=== PATIENT | female | born 1975 | race Caucasian/White ===

== ENCOUNTER 2020-08-20 06:58 | Outpatient (NON) | payer OTHER, SELFPAY ==
[2020-08-20 23:36] LABS: SARS-CoV-2 RNA PCR Positive
== END 2020-08-20 06:59 ==
PROVIDERS: Visit Provider Family Medicine
DX: U07.1 COVID-19 (principal)
CPT/HCPCS: 87635; C9803; U0003

== ENCOUNTER 2022-01-16 15:11 | Outpatient (CLI) | payer OTHER, SELFPAY ==
--- NOTE | ~2022-01-16 | MR_ITS ---
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 Sequences included coronal PD-weighted FSE, coronal PD-weighted FS FSE, sagittal T2-weighted FSE , sagittal PD-weighted FS FSE and axial PD weighted fat saturated FSE. COMPARISON: None. FINDINGS: Medial compartment: Full-thickness radial tear near the posterior root of the medial meniscus with mild medial extrusion of the meniscal body. Partial-thickness chondral ulceration at the central weightbearing medial femor al condyle. Articular cartilage along the medial tibial plateau appears normal however there is mild subarticular edema-like signal change along the medial rim which could be reactive related to altered stress distribution resulting from the meniscal tear. Lateral compartment: Lateral meniscus is normal. Articular cartilage is normal. Patellofemoral compartment: Partial-thickness cartilage loss along the lateral patellar facet and apical ridge with scattered alexis p chondral fissuring. Small region of deep chondral fissuring at the inferior most aspect of the medi al trochlea. Additional deep chondral fissuring at the trochlear groove and medial side of the latera l trochlea. Ligaments and tendons: Anterior and posterior cruciate ligaments are normal. The medial collateral ligament and fibular lea ateral ligament complex are normal. The extensor mechanism is normal. The visualized medial and later al hamstring tendons as well as the iliotibial band are normal. Fluid: Small left knee joint effusion at the suprapatellar pouch. No loose osteochondral bodies identified. Small amount of fluid tracking between the medial head of the gastrocnemius and the semimembranosus t endon is typical site of a Cobb's cyst but which does not appear loculated which tracks more caudall y along the medial margin of the medial head of the gastrocnemius muscle suggesting a ruptured Cobb' s cyst. Osseous/other: Small low signal intensity bone island at the lateral trochlea. Patchy red marrow reexpansion in the distal femoral metaphysis and distal diaphysis. No fracture or pathologic marrow replacing process. IMPRESSION: 1. Full-thickness radial tear The posterior root of the medial meniscus. 2. Mild medial and patellofemoral osteoarthritis with moderate grade chondromalacia along the weightb earing medial femoral condyle and moderate to high-grade chondromalacia at the patella and trochlea. Reviewed, dictated and finalized at location A. IMPRESSION: 1. Full-thickness radial tear The posterior root of the medial meniscus. 2. Mild medial and patellofemoral osteoarthritis with moderate grade chondromal acia along the weightbearing medial femoral condyle and moderate to high-grade chondromalacia at the patella and trochlea.
== END 2022-01-16 15:12 | disposition home or self-care (01) ==
LOC: ANHIMG 15:18
PROVIDERS: PCP Family Medicine
DX: M94.262 Chondromalacia, left knee (principal); S83.242A Other tear of medial meniscus, current injury, left knee, initial encounter; M17.12 Unilateral primary osteoarthritis, left knee
CPT/HCPCS: 73721

== ENCOUNTER 2024-11-23 16:14 | Outpatient (CLI) | payer OTHER, SELFPAY ==
--- OUTSIDE RECORDS SUMMARY | 2024-11-23 16:20 | XMS_ITS | Clinical Summary ---
Author Organization [facility] Address [address] [place] [address]. 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 Gender Identity Not on file Sexual Orientation Not on file Plan of Treatment Health Maintenance Due Date Last Done Comments Cervical Cancer Screening Pa p Smear (Age 30 to 64) Every 3 Years 1975 Colorectal Cancer Screening Colonoscopy (10 Years) 1975 Annual Physical 1978 Hepatitis C 1993 DTaP, Tdap and Td Vaccines ( 1 - Tdap) 1994 Hepatitis B Vaccines (1 of 3 - 19+ 3-dose series) 1994 Cervical Cancer Screening Pa p with HPV Testing (Age 30 to 64) Every 5 Years 2005 Cervical Cancer Screening with HPV 2005 Mammogram Screening 2015 COVID-19 Vaccine (2023-2 5 season) 2024 Influenza Adult (#1) 2024 Meningococcal B Vaccine Aged Out No l onger eligible based on patient's age to complete this topic Meningococcal Vaccine Aged Out No cherise garrick eligible based on patient's age to complete this topic Pneumococcal Vaccine: Pediat rics (0 to 5 Years) and At-Risk Patients (6 to 64 Years) Aged Out No longer eligible b ased on patient's age to complete this topic RSV Immunizations Under 20 Months Aged Out No longer eligible based on patient's age to complete this topic Insurance [facility] Care Teams Air Conditioning Manager Relationship Specialty Start Date End Date Juan Cifuentes MD [address] [place] [address] [address] [place] [address] PCP - General FAMILY PRACTICE 09/24/21
--- OUTSIDE RECORDS SUMMARY | 2024-11-23 16:20 | XMS_ITS | Encounter Summary ---
Author Organization [facility] Address [address] [place] [address] Phone Care Team Providers Care Quality Assurance Supervisor Body Name Role Phone Nia Edwards MD Primary Care Provider + Juan Cifuentes MD Primary Care Provider [phone] Encounter Details Date Type Department Care Team (Latest Contact Info) Description 12/16/2017 Orders Only [facility] CONVERSION Scanning, Provider Social History Tobacco Use Types Packs/Day Years Used Date Smoking Tobacco: Never Smokeless Tobacco: Never Comments No Sex and Gender Information Value Date Recorded Sex Assigned at Not on file 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 Gender Identity Not on file Sexual Orientation Not on file documented as of this encounter Plan of Treatment Not on file documented as of this encounter Procedures Procedure Name Priority Date/Time Associated Diagnosis Comments OBSTETRIC/GYNECOLOGY ULTRASONOGRAPHY REPORT 12/16/2017 4:14 PM MEDICAL TRANSCRIPTION SUPERVISOR documented in this encounter Results * OBSTETRIC/GYNECOLOGY ULTRASONOGRAPHY REPORT (12/16/2017 4:14 PM MEDICAL TRANSCRIPTION SUPERVISOR) Anatomical Region Laterality Modality Ultrasound us Provider Scanning IMG OB US PROCEDURES Final Res ult documented in this encounter Visit Diagnoses Not on filedocumented in this encounter Additional Health Concerns Infection Onset Date Last Indicated Resolved Time COVID: Recovered Comment:02/19/2022 Patient COVID + 3/4, meets recovery status, IP Karin Gonzalez, RN 12/24/2021 02/19/202204/23 3:05 AM CDT documented as of this encounter Care Teams Quality Assurance Supervisor Body Relationship Specialty Start Date End Date Nia Edwards MD PCP - General 12/03/17 10/27/21 Juan Cifuentes MD [address] [address] PCP - General Family Medicine 10/28/21 documented as of this encounter
--- OUTSIDE RECORDS SUMMARY | 2024-11-23 16:20 | XMS_ITS | Encounter Summary ---
Author Organization [facility] Address [address] [place] [address] Phone Care Team Providers Care Gifts Officer Name Role Phone Clinic, Pcp Primary Care Provider Nia Griffin MD Primary Care Provider + Juan Cifuentes MD Primary Care Provider [phone] Encounter Details Date Type Department Care Team (Late st Contact Info) Description 04/22/2017 Orders Only [facility] [address] [facility] [address] [address] Karissa Strickland MD [address] 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 Gender Identity Not on file Sexual Orientation Not on file documented as of this encounter Plan of Treatment Not on file documented as of this encounter Procedures Procedure Name Priority Date/Time Associated Diagnosis Comments SCREENING MAMMOGRAM 2D BILATERAL Schedule Routine, Read Routine (OP Routine) 04/13/2017 documented in this encounter Results * SCREENING MAMMOGRAM 2D BILATERAL (04/13/2017) Anatomical Region Laterality Modality Breast Bilateral Mammography us Karissa Strickland MD IMG MAMMO PROCEDURES Final Result documented in this encounter Visit Diagnoses Not on filedocumented in this encounter Additional Health Concerns Infection Onset Date Last Indicated Resolved Time COVID: Recovered Comment:02/19/2022 Patient COVID + 3/, meets recovery status, IP Karin Gonzalez, RN 12/24/2021 02/19/202204/23 3:05 AM CDT documented as of this encounter Care Teams Gifts Officer Relationship Specialty Start Date End Date Clinic, Pcp PCP - General 09/20/17 12/02/17 Nia Edwards MD PCP - General 12/03/17 10/27/21 Juan Cifuentes MD [address] [address] PCP - General Family Medicine 10/28/21 documented as of this encounter
--- OUTSIDE RECORDS SUMMARY | 2024-11-23 16:20 | XMS_ITS | Clinical Summary ---
Author Organization [facility] Address [address] [place] [address] Phone Care Team Providers Care Psychological Tests Sales Agent Name Role Phone Nia Edwards MD Primary Care Provider + Allergies No known active allergies Medications ferrous sulfate 325 (65 Fe) MG Tablet Take 325 mg by mouth daily. Active Cholecalciferol (VITAMIN D3) 1000 UNIT Tablet Take 1,000 Units by mouth daily. Active Family History Medical History Relation Name Comments No Known Problems Father No Known Problems Mother Relation Name Status Comments Father Alive Mother Alive Social History Tobacco Use Types Packs/Day Years Used Date Smoking Tobacco: Never Smokeless Tobacco: Never Tobacco Cessation:Counseling Given: No Alcohol Use Standard Drinks/Week Comments No 0 (1 standard drink = 0.6 oz pur e alcohol) Sexually Active Control Partners Comments Yes Male Comments No Sex and Gender Information Value Date Recorded Sex Assigned at Not on file Legal Sex Female 8:29 AM CDT Gender Identity Not on file Sexual Orientation Not on file Last Filed Vital Signs Vital Sign Reading Time Taken Comments Blood Pressure 110/80 12/07/2017 3:02 PM DIPLOMA MEDICAL ASSISTANT Pulse 67 12/07/2017 3:02 PM DIPLOMA MEDICAL ASSISTANT Temperature - - Respiratory Rate 18 12/07/2017 3:02 PM DIPLOMA MEDICAL ASSISTANT Oxygen Saturation 98% 12/07/2017 3:02 PM DIPLOMA MEDICAL ASSISTANT Inhaled Oxygen Concentration - - Weight 74.8 kg (165 lb) 12/07/2017 3:02 PM DIPLOMA MEDICAL ASSISTANT Height 170.2 cm (5' 7 ) 12/07/2017 3:02 PM DIPLOMA MEDICAL ASSISTANT Body Mass Index 25.84 12/07/2017 3:02 PM DIPLOMA MEDICAL ASSISTANT Plan of Treatment Health Maintenance Due Date Last Done Comments Hepatitis C Virus (HCV) Screening 1975 TdaP Immunization 1975 Hepatitis B Immunization (1 of 3 - 19+ 3-dose series) 1994 Pap Smear 1996 Cervical Cancer Screening (CCS) 2005 HPV/Cotest 2005 Discussion re Starting/Frequ ency of Mammograms 2015 Colonoscopy 2020 Colorectal Cancer Screening 2020 Influenza Immunization (#1) 2024 SARS-COV-2 Immunization ( season) 2024 Respiratory Syncytial Virus (RSV) Immunization (Adult) (1 - 1-dose 75+ series) 2050 Meningococcal Immunization (ACWY) Aged Out No longer eligible based on patient's age to complete this topic Pneumococcal Immunization Combined Aged Out No longer eligible based on patient's age to complete this topic Rotavirus Immunization Aged Out No lo nger eligible based on patient's age to complete this topic Care Teams Psychological Tests Sales Agent Relationship Specialty Start Date End Date Nia Edwards MD [address] [place] [address] PCP - General Family Medicine 09/01/17
--- OUTSIDE RECORDS SUMMARY | 2024-11-23 16:20 | XMS_ITS | Clinical Summary ---
Author Organization [facility] Address [address] [place] [address] Phone Care Team Providers Care R Developer Name Role Phone Juan Cifuentes MD Primary Care Provider [phone] Allergies No known active allergies Medications levonorgestreL (MIRENA) IUDIndications:Pr egnancy Contraception 1 each by intrauterine route continuously 01/10/20 20 025 Active multivitamin tabletIndications :Vitamin Deficiency Prevention Take 1 tablet by mouth it compliance manager before breakfast Active cholecalciferol (VITAMIN D-3) 400 unit capsuleIndication s:supplement Take 1 tablet/capsule (400 Units total) by mouth it compliance manager before breakfast Active iron 18 mg tabletIndications :Iron Deficiency Anemia,supplement Take 18 mg by mouth it compliance manager before breakfast Active ascorbic acid (VITAMIN C) 100 mg tabletIndications :supplement Take 1 tablet (100 mg total) by mouth every morning Active vitamin B complex capsuleIndication s:Vitamin Deficiency Prevention Take 1 capsule by mouth every morning Active azelastine (ASTELIN) 137 mcg (0.1 %) nasal sprayIndications: Seasonal Allergic Rhinitis Administer 1 spray into each nostril every morning 03/05/20 24 Active ondansetron (ZOFRAN) 4 mg tablet Take 1 tablet (4 mg total) by mouth every 8 (eight) hours as needed for nausea 12 tablet 10/13/20 24 Active docusate sodium (COLACE) 100 mg capsuleIndication s:constipation Take 1 capsule (100 mg total) by mouth 2 (two) times a day 14 capsule 10/13/20 24 Active aspirin 81 mg enteric coated tablet Take 1 tablet (81 mg total) by mouth 2 (two) times a day for 14 days 28 tablet 10/13/20 24 Active oxyCODONE-acetami nophen (PERCOCET) 7.5-325 mg per tabletIndications :Pain Take 1 tablet by mouth every 6 (six) hours as needed for pain 24 tablet 10/13/20 24 Active Hospital, Clinic, or Other Facility Administered Medication Ordered Dose Route Frequency Start Date End Date Status levonorgestreL (MIRENA) 20 mcg/24 hours (5 yrs) 52 mg IUD 1 eachIndications:Encoun ter for IUD removal and reinsertion 1 each intrauterine 01/10/2020 Active Active Problems Problem Noted Date Diagnosed Date Biceps tendinitis of right upper extremity 09/08 Tendinitis of right rotator cuff 09/08/2024 Status post medial meniscal repair 03/10/2022 Chronic vulvitis 02/10/2022 Assessment & Plan (02/10/2022 9:02 PM CDT): Diflucan 150 po times one SureSwab sent Vulvar skin care guidelines Stop using Feminine wash. Try Baking Soda soak. OK to use otc hydrocortisone ointment externally BID for 3 days. Acute medial meniscus tear of left knee 01/22/20 Chondromalacia of knee, left 09/30/2021 Uterine leiomyoma 12/27/2014 Encounters Date Type Department Care Team Description 11/01/2024 4:00 PM COTTON PICKING MACHINE OPERATOR Office Visit [facility] Orthopaedic Surgery [address] [facility] 2nd Floor [address] [place] [address] Ole Jacobs MD Right shoulder pain, unspecified chronicity (Primary Dx) 10/13/2024 1:33 PM COTTON PICKING MACHINE OPERATOR Anesthesia Event [facility] Surgery at [facility] [address] [place] [address] Maurice Richards MD Nieva, Daniel Rey Camba, MD 10/13/2024 12:50 PM COTTON PICKING MACHINE OPERATOR - 10/13/2024 3:35 PM COTTON PICKING MACHINE OPERATOR Surgery [facility] Surgery at [facility] [address] [place] [address] Ole Jacobs MD ARTHROSCOPY SHOULDER SUBACROMIAL DECOMPRESSION 10/13/2024 10:33 AM COTTON PICKING MACHINE OPERATOR - 10/13/2024 4:38 PM COTTON PICKING MACHINE OPERATOR Hospital Encounter [facility] Surgery at [address] [address] Ole Jacobs MD Tendinitis of right rotator cuff [M75.81] (Primary Dx) Discharge Disposition: Discharge to home or self care 10/12/2024 Telephone [facility] Orthopaedic Surgery [id number] [place] [address] [address] [place] [address] Andre Epperson ATC 10/10/2024 Orders Only [facility] Orthopaedic Surgery [id number] [place] [address] [address] [place] [address] Ole Jacobs MD from Last 3 Months Surgical History Surgery Date Site/Laterality Comments MYOMECTOMY 10/25/2005 - 10/24/2006 Myomectomy ANTERIOR CRUCIATE LIGAMENT REPAIR 10/25/2005 - 10/24/2006 Right ACL/ patella OR LEG SURGERY 10/25/1981 - 10/24/1982 Left Laceration/wound closure KNEE ARTHROSCOPY W/ MENISCAL REPAIR 02/27/2022 Left Medical History Medical History Date Comments Uterine leiomyoma Fibroid uterus Anemia Anemia Personal history of COVID-19 +CO VID 12/24/2021-- Sx included fever & body aches X 2 days Social History Tobacco Use Types Packs/Day Years Used Date Smoking Tobacco: Never Smokeless Tobacco: Never AUDIT-C Answer Date Recorded Q1: How often do you have a drink containing alcohol? Never 10/13/2024 Q2: How many drinks containi ng alcohol do you have on a typical day when you are drinking? Patient does not drink Q3: How often do you have si x or more drinks on one occasion? Never 10/13/2024 PHQ-2 Answer Date Recorded PHQ-2 Total Score (If total score is 3 or more points, staff should administer the PHQ-9) 0 12/13/2020 Personal Safety Answer Date Recorded Have you ever been in or are you currently in a harmful physical or emotional relationship or is someone making you feel afraid or unsafe? Denies 10/13/2024 Comments No Sex and Gender Information Value Date Recorded Sex Assigned at Not on file Legal Sex Female 2:07 AM COTTON PICKING MACHINE OPERATOR Gender Identity Not on file Sexual Orientation Not on file Obstetrics History Para Term AB IAB SAB Ectopic Multiple Livin g Live Births 1 1 1 1 Date Outcome GA Total Labor Labor/2nd/3rd Weight Sex Type Anes PTL Maria Alejandra A1 A5 Name Clin Para Last Filed Vital Signs Vital Sign Reading Time Taken Comments Blood Pressure 115/68 10/13/2024 4:05 PM COTTON PICKING MACHINE OPERATOR Pulse 57 10/13/2024 4:05 PM COTTON PICKING MACHINE OPERATOR Temperature 36.2 ??C (97.2 ??F) 10/13/2024 3:50 PM CS T Respiratory Rate 17 10/13/2024 4:05 PM COTTON PICKING MACHINE OPERATOR Oxygen Saturation 99% 10/13/2024 4:05 PM COTTON PICKING MACHINE OPERATOR Inhaled Oxygen Concentration - - Weight 72.6 kg (160 lb) 10/13/2024 11:15 AM COTTON PICKING MACHINE OPERATOR Height 170.2 cm (5' 7 ) 10/13/2024 11:15 AM COTTON PICKING MACHINE OPERATOR Body Mass Index 25.06 10/13/2024 11:15 AM COTTON PICKING MACHINE OPERATOR Plan of Treatment Health Maintenance Due Date Last Done Comments Colon Cancer Screening-Colonoscopy 1975 Hepatitis C Screening 1975 DTaP/Tdap/Td Vaccine (1 - Tdap) 1986 Hepatitis B Screening 1993 Depression Screening 12/13/2021 12/13/2020 Breast Cancer Screening-Mammogram 04/24/2022 04/24/2021, 04/23/2020, 04/14/2018, Additional history exists Influenza Vaccine (#1) 2024 Cervical Cancer Screening 03/30/20252023, 03/30/2024, 03/29/2023, Additional history exists Regular Well Visit/Exam 18-64 03/30/2025 03/30/2024, 03/29/2023, 01/15/2022, Additional history exists Pneumococcal vaccine <65 Aged Out No longer eligible based on patient's age to complete this topic Medical Devices Implanted Type Area Plastic Parts Designer Device Identifier Shelf Expiration Date Model / Serial / Lot [employer] Footprint Ultra 4.5mm [place] Suture Peek-Latimer [id number] - S0 - [id number] Implanted:Qty: 1 on 02/27/2022 by Ole Jacobs MD at [facility] Left: Knee [employer] 08/23/2026 [id number] / [id number] / [id number] Procedures Procedure Name Priority Date/Time Associated Diagnosis Comments DC AN PROCEDURE PLACEHOLDER Routine 10/13/2024 1:54 PM COTTON PICKING MACHINE OPERATOR DC AN ELECTIVE ENDOTRACHEAL AIRWAY Routine 10/13/2024 1:54 PM COTTON PICKING MACHINE OPERATOR ARTHROSCOPY SHOULDER 10/13/2024 1:35 PM COTTON PICKING MACHINE OPERATOR Biceps tendinitis of right upper extremity Tendinitis of right rotator cuff Case Notes 10/06@0843: make second case in OR [address] Jacobs via email. Equipment list added to case comments. BR EXCISION DISTAL CLAVICLE 10/13/2024 1:35 PM COTTON PICKING MACHINE OPERATOR Biceps tendinitis of right upper extremity Tendinitis of right rotator cuff Case Notes 10/06@0843: make second case in OR [address] Jacobs via email. Equipment list added to case comments. BR ARTHROSCOPY SHOULDER SUBACROMIAL DECOMPRESSION 10/13/2024 1:35 PM COTTON PICKING MACHINE OPERATOR Biceps tendinitis of right upper extremity Tendinitis of right rotator cuff Case Notes 10/06@0843: make second case in OR [address] Jacobs via email. Equipment list added to case comments. BR DC AN PROCEDURE PLACEHOLDER Routine 10/13/2024 12:53 PM COTTON PICKING MACHINE OPERATOR DC AN PROCEDURE PLACEHOLDER Routine 10/13/2024 12:52 PM COTTON PICKING MACHINE OPERATOR BW IP ANE LDA PERIPHERAL NERVE CATHETER Routine 10/13/2024 12:52 PM COTTON PICKING MACHINE OPERATOR POCT HCG, URINE Routine 10/13/2024 11:14 AM COTTON PICKING MACHINE OPERATOR HIGH RISK HPV DNA DETECTION WITH GENOTYPING Routine 03/30/2024 5:28 PM CDT Screening for malignant neoplasm of the cervix SCREENING MAMMOGRAM 2D BILATERAL Schedule Routine, Read Routine (OP Routine) 04/24/2021 from Last 3 Months or Most Recently Relevant to Health Maintenance Results * DC AN ELECTIVE ENDOTRACHEAL AIRWAY, DC AN PROCEDURE PLACEHOLDER (10/13/2024 1:54 PM COTTON PICKING MACHINE OPERATOR) Narrative Nguyen Schneider CRNA - 10/13/2024 1:54 PM COTTON PICKING MACHINE OPERATOR Nguyen Schneider CRNA ? 10/13/2024 ??1:54 PM Airway Patient location: OR Urgency: elective Indications for airway management: anesthesia Difficult airway: no Staff: Placed by: SALESPERSON MEATS: Nguyen Schneider CRNA Emergent airway documentation: Risks and benefits discussed: yes Consent obtained: yes Consent given by: patient Airway prep: Preoxygenated: yes Patient position: sniffing Mask difficulty assessment: 0 - not attempted Spontaneous ventilation during airway: absent Sedation level during airway: GA Final airway details: Final airway type: endotracheal airway Tube type: ETT ETT size: 6.5 mm Cuffed: yes Technique used for successful ETT placement: direct laryngoscopy Devices/Methods used in placement: intubating stylet Insertion site: oral Blade type: Laura Blade size: 3 Cormack-Lehane (direct): grade IIa - partial view of glottis Cuff inflated with: air ETT to lips: 21 cm Placement verified by: auscultation and CO2 detection Airway secured with: silk tape Number of attempts: 1 us Maurice iRchards MD ANESTHESIA ORDERABLES Final Resu lt * DC AN PROCEDURE PLACEHOLDER (10/13/2024 12:53 PM COTTON PICKING MACHINE OPERATOR) Narrative Maurice Richards MD - 10/13/2024 12:53 PM COTTON PICKING MACHINE OPERATOR Maurice Richards MD ? 10/13/2024 12:53 PM Peripheral Block Patient location during procedure: pre-op holding Reason for block: post-op pain management per surgeon request Block type: single shot Laterality: right Block type: intercostobrachial nerve block Staff: Supervising provider: Maurice Richards MD Placed by: Anesthesiologist: Maurice Richards MD Procedure prep: Preprocedure checklist: patient identified, procedure contraindications assessed, site marked, procedure consent, surgical consent, IV checked, risks, benefits and alternatives discussed, monitors and equipment checked and timeout performed Patient position: supine and head of bed elevated Procedure performed while patient: sedate with meaningful contact Monitoring: oximetry, ECG and blood pressure Supplemental O2: nasal cannula Prep solution: chlorhexidine/alcohol PPE: provider hat/mask and sterile gloves Peripheral nerve block: Technique: landmark(s) Needle type: insulated, short-bevel and echogenic Needle gauge: 22 G Needle length: 50 mm Injection assessment: injection made incrementally with constant monitoring, negative aspiration for heme, no paresthesias noted, normal resistance to injection and see flowsheet for medication details Assessment: Block success: full evaluation pending Events: patient tolerated procedure well with no complications us Maurice Richards MD ANESTHESIA ORDERABLES Final Resu lt * BW IP ANE LDA PERIPHERAL NERVE CATHETER, DC AN PROCEDURE PLACEHOLDER (10/13/2024 12:52 PM COTTON PICKING MACHINE OPERATOR) Narrative Maurice Richards MD - 10/13/2024 12:52 PM COTTON PICKING MACHINE OPERATOR Maurice Richards MD ? 10/13/2024 12:53 PM Peripheral Block Patient location during procedure: pre-op holding Reason for block: post-op pain management per surgeon request Ultrasound image in chart or stored: yes Block type: catheter continuous infusion Laterality: right Block type: brachial plexus - interscalene Staff: Supervising provider: Maurice Richards MD Placed by: Anesthesiologist: Maurice Richards MD Procedure prep: Preprocedure checklist: patient identified, procedure contraindications assessed, site marked, procedure consent, surgical consent, IV checked, risks, benefits and alternatives discussed, monitors and equipment checked and timeout performed Patient position: head of bed elevated Procedure performed while patient: sedate with meaningful contact Monitoring: ECG, oximetry and blood pressure Supplemental O2: nasal cannula Prep solution: chlorhexidine/alcohol PPE: provider hat/mask, sterile gloves, sterile drape and sterile probe cover and gel Skin infiltrated with lidocaine 1%: yes Peripheral nerve block: Technique: ultrasound guided Needle type: insulated, short-bevel and echogenic Needle gauge: 21 G Needle length: 68mm. Injection assessment: injection made incrementally with constant monitoring, local visualized surrounding nerve on ultrasound, negative aspiration for heme, no paresthesias noted, normal resistance to injection and see flowsheet for medication details Catheter: Catheter type: catheter over needle Catheter over needle length: 51 Catheter placement details: catheter position confirmed by ultrasound, no aspiration of heme, benzoin, steri-strips, dermal adhesive and occlusive dressing applied Assessment: Block success: full evaluation pending Events: patient tolerated procedure well with no complications Maurice Richards MD ANESTHESIA ORDERABLES Final Resu lt * POCT hCG, urine (10/13/2024 11:14 AM COTTON PICKING MACHINE OPERATOR) HCG, ur, POC Negative Negative Lot Number [id number] QC Backgroud Clear Acceptable QC Control Line Acceptable Urine 10/13/2024 11:1 4 AM COTTON PICKING MACHINE OPERATOR Leonor Nelson NP POINT OF CARE TEST ORDERA BLES Final Result * High Risk HPV DNA Detection with Genotyping (Molecular component) (03/30/2024 5:28 PM CDT) Pathologist [facility] HPV HR 16 Not Detected Not Detected HPV HR 18 Not Detected Not Detected [facility] HPV HR Non 16/18 Not Detected Not Detected [facility] Comment: Interpretive Data Nucleic acid amplification for detection of high-risk Human Papilloma virus (HPV) is performed by the Murtaza Tamara 4800 HPV test, which specifically detects high-risk HPV-16, 18, 31, 33, 35, 39, 45, 51, 52, 56, 58, 59, 66, and 68 genotypes. ??This assay has been approved by the [place] Food and Drug Administration for detection of HPV in cervical specimens collected by a physician using an endocervical brush/spatula or cervical broom and placed in the ThinPrep Pap Test PreservCyt collection containers. ??The performance characteristics of this test have been verified by the [facility]. Correlate with separately reported cytology results, as applicable. Interpretive data last revised 23 Endocervical 03/30/2024 5:28 PM CDT 03/30/2024 8:37 PM CDT Narrative [facility] - 04/03/2024 8:15 PM CDT Clinical history and diagnosis->routine Number of vials->1 Testing type->Screening Last menstrual period (date if known)->iud Contraceptive use->IUD Karissa Strickland MD LAB BODY FLUIDS AND STOOLS ORDERABLES Final Result [facility] [address] Department [place] [address] * Screening Mammogram 2D Bilateral (04/24/2021) Anatomical Region Laterality Modality Breast Bilateral Mammography Karissa Strickland MD IMG MAMMO PROCEDURES Final Result from Last 3 Months or Most Recently Relevant to Health Maintenance Insurance [facility] CHOICE PLUS [facility] CHOICE PLUS [place] [id number] [facility] CHOICE PLUS [place] [id number] [facility] CHOICE PLUS [place] [id number] Care Teams R Developer Relationship Specialty Start Date End Date Juan Cifuentes MD [address] [address] PCP - General Family Medicine 10/28/21
--- OUTSIDE RECORDS SUMMARY | 2024-11-23 16:20 | XMS_ITS | Referral Summary ---
Author Organization [facility] Address [address] [place] [address] Phone Care Team Providers Care Soil Specialist Name Role Phone Juan Cifuentes MD Primary Care Provider [phone] Encounters Date Type Department Care Team Description 11/01/2024 4:00 PM PLASTER MIXER Office Visit [facility] Orth[facility] Surgery [address] [facility] 2nd [address] [place] [address] Ole Jacobs MD Right shoulder pain, unspecified chronicity (Primary Dx) 10/13/2024 12:50 PM PLASTER MIXER - 10/13/2024 3:35 PM PLASTER MIXER Surgery [facility] [address] [place] [address] Ole Jacobs MD ARTHROSCOPY SHOULDER SUBACROMIAL DECOMPRESSION 10/13/2024 1:33 PM PLASTER MIXER Anesthesia Event [facility] [address] [place] [address] Maurice Richards MD Nieva, Daniel Rey Camba, MD 10/13/2024 10:33 AM PLASTER MIXER - 10/13/2024 4:38 PM PLASTER MIXER Hospital Encounter [facility] [address] [place] [address] Ole Jacobs MD Tendinitis of right rotator cuff [M75.81] (Primary Dx) Discharge Disposition: Discharge to home or self care 10/12/2024 Telephone [facility] Surgery [address] [facility] 2[address] [place] [id number] Andre Epperson ATC 10/10/2024 Orders Only [facility] [address] [facility] 2[address] [place] [address] Ole Jacobs MD from Last 3 Months Allergies No known active allergies Medications levonorgestreL (MIRENA) IUDIndications:Pr egnancy Contraception 1 each by intrauterine route continuously 01/10/20 20 025 Active multivitamin tabletIndications :Vitamin Deficiency Prevention Take 1 tablet by mouth production weigher before breakfast Active cholecalciferol (VITAMIN D-3) 400 unit capsuleIndication s:supplement Take 1 tablet/capsule (400 Units total) by mouth production weigher before breakfast Active iron 18 mg tabletIndications :Iron Deficiency Anemia,supplement Take 18 mg by mouth production weigher before breakfast Active ascorbic acid (VITAMIN C) [...] medial meniscus tear of left knee 01/22/20 22 Chondromalacia of knee, left 09/30/2021 Uterine leiomyoma 12/27/2014 Social History Tobacco Use Types Packs/Day Years [...] on file Legal Sex Female 2:07 AM PLASTER MIXER Gender Identity Not on file Sexual Orientation Not on file Last Filed Vital Signs Vital Sign Reading Time Taken Comments Blood Pressure 115/68 10/13/2024 4:05 PM PLASTER MIXER Pulse 57 10/13/2024 4:05 PM PLASTER MIXER Temperature 36.2 ??C (97.2 ??F) 10/13/2024 3:50 PM CS T Respiratory Rate 17 10/13/2024 4:05 PM PLASTER MIXER Oxygen Saturation 99% 10/13/2024 4:05 PM PLASTER MIXER Inhaled Oxygen Concentration - - Weight 72.6 kg (160 lb) 10/13/2024 11:15 AM PLASTER MIXER Height 170.2 cm (5' 7 ) 10/13/2024 11:15 AM PLASTER MIXER Body Mass Index 25.06 10/13/2024 11:15 AM PLASTER MIXER Plan of Treatment Not on file Medical Devices Implanted Type Area Roll Setter Device Identifier Shelf Expiration Date Model / Serial / Lot [employer] Footprint Ultra 4.5mm Neptune Suture [place] [id number] - [id number] - [id number] Implanted:Qty: 1 on 02/27/2022 by Oel Jacobs MD at [facility] Left: Knee [employer] 08/23/2026 [id number] / [id number] / [id number] Procedures Procedure Name Priority Date/Time Associated Diagnosis Comments MN AN PROCEDURE PLACEHOLDER Routine 10/13/2024 1:54 PM PLASTER MIXER MN AN ELECTIVE ENDOTRACHEAL AIRWAY Routine 10/13/2024 1:54 PM PLASTER MIXER ARTHROSCOPY SHOULDER 10/13/2024 1:35 PM PLASTER MIXER Biceps tendinitis of right upper extremity Tendinitis of right rotator cuff Case Notes 10/06@0843: make second case in OR [address] Jacobs via email. Equipment list added to case comments. BR EXCISION DISTAL CLAVICLE 10/13/2024 1:35 PM PLASTER MIXER Biceps tendinitis of right upper extremity Tendinitis of right rotator cuff Case Notes 10/06@0843: make second case in OR [address] Jacobs via email. Equipment list added to case comments. BR ARTHROSCOPY SHOULDER SUBACROMIAL DECOMPRESSION 10/13/2024 1:35 PM PLASTER MIXER Biceps tendinitis of right upper extremity Tendinitis of right rotator cuff Case Notes 10/06@0843: make second case in OR [address] Jacobs via email. Equipment list added to case comments. BR MN AN PROCEDURE PLACEHOLDER Routine 10/13/2024 12:53 PM PLASTER MIXER MN AN PROCEDURE PLACEHOLDER Routine 10/13/2024 12:52 PM PLASTER MIXER BW IP ANE LDA PERIPHERAL NERVE CATHETER Routine 10/13/2024 12:52 PM PLASTER MIXER POCT HCG, URINE Routine 10/13/2024 11:14 AM PLASTER MIXER HIGH RISK HPV DNA DETECTION WITH GENOTYPING Routine 03/30/2024 5:28 PM CDT Screening for malignant neoplasm of the cervix SCREENING MAMMOGRAM 2D BILATERAL Schedule Routine, Read Routine (OP Routine) 04/24/2021 from Last 3 Months or Most Recently Relevant to Health Maintenance Results * MN AN ELECTIVE ENDOTRACHEAL AIRWAY, MN AN PROCEDURE PLACEHOLDER (10/13/2024 1:54 PM PLASTER MIXER) Narrative Nguyen Torres CRNA - 10/13/2024 1:54 PM PLASTER MIXER Nguyen Torres CRNA ? 10/13/2024 ??1:54 PM Airway Patient location: OR Urgency: elective Indications for airway management: anesthesia Difficult airway: no Staff: Placed by: JEWEL BEARING POLISHER: Nguyen Torres CRNA Emergent airway documentation: Risks and benefits [...] tape Number of attempts: 1 us Maurice Richards MD ANESTHESIA ORDERABLES Final Resu lt * MN AN PROCEDURE PLACEHOLDER (10/13/2024 12:53 PM PLASTER MIXER) Narrative Maurice Richards MD - 10/13/2024 12:53 PM PLASTER MIXER Maurice Richards MD ? 10/13/2024 12:53 PM [...] BW IP ANE LDA PERIPHERAL NERVE CATHETER, MN AN PROCEDURE PLACEHOLDER (10/13/2024 12:52 PM [facility]) Narrative Maurice Richards MD - 10/13/2024 12:52 PM PLASTER MIXER Maurice Richards MD ? 10/13/2024 12:53 PM [...] * POCT hCG, urine (10/13/2024 11:14 AM PLASTER MIXER) Pathologist [facility] HCG, ur, POC Negative Negative Lot Number [id number] QC Backgroud Clear Acceptable QC Control Line Acceptable Urine 10/13/2024 11:1 4 AM PLASTER MIXER Leonor Nelson NP POINT OF CARE TEST ORDERA BLES Final Result * High Risk HPV DNA Detection with Genotyping (Molecular component) (03/30/2024 5:28 PM CDT) Pathologist [facility] HPV HR 16 Not Detected Not Detected HPV HR 18 Not Detected Not Detected [facility] HPV HR Non 16/18 Not Detected Not Detected [facility] Comment: Interpretive Data Nucleic acid amplification for [...] this test have been verified by the [facility]. Correlate with separately reported cytology results, as applicable. Interpretive data last revised 23 Endocervical 03/30/2024 5:28 PM CDT 03/30/2024 8:37 PM CDT Narrative [facility] - 04/03/2024 8:15 PM CDT Clinical history and diagnosis->routine Number of vials->1 Testing type->Screening Last menstrual period (date if known)->iud Contraceptive use->IUD Karissa Strickland MD LAB BODY FLUIDS AND STOOLS ORDERABLES [facility] [address] Department [place] [address] * Screening Mammogram 2D Bilateral (04/24/2021) Anatomical Region Laterality Modality Breast Bilateral Mammography Karissa Strickland MD IMG MAMMO PROCEDURES Final Result from Last 3 Months or Most Recently Relevant to Health Maintenance Insurance [employer] PL[employer] Care Teams Soil Specialist Relationship Specialty Start Date End Date Juan Cifuentes MD [address] [id number] PCP - General Family Medicine 10/28/21
[2024-11-23 16:53] LABS: Strep Group A RT-PCR NOT DETECTED (Negative)
== END 2024-11-23 16:15 | disposition home or self-care (01) ==
LOC: ANHLAB 16:17
PROVIDERS: PCP Family Medicine; Visit Provider Family Medicine
DX: J02.9 Acute pharyngitis, unspecified (principal); Z20.822 Contact with and (suspected) exposure to COVID-19
CPT/HCPCS: 87651

== ENCOUNTER → 2025-01-25 10:02 | Outpatient (CLI) | payer OTHER, SELFPAY ==
--- NOTE | ~2025-01-25 | XR_ITS ---
Lumbosacral Spine: AP, oblique, and lateral views Clinical History: Pain Findings: The normal lordotic curve is maintained. The vertebral bodies and posterior elements are i ntact. The intervertebral disc spaces are preserved. There is moderate facet arthropathy from L3 thr ough S1. The sacroiliac joints are normally outlined. Impression: Facet arthropathy, as above. Reviewed, dictated and finalized at location . Impression: Facet arthropathy, as above.
== END ==
PROVIDERS: PCP Family Medicine; Visit Provider Family Medicine
DX: M47.817 Spondylosis without myelopathy or radiculopathy, lumbosacral region (principal); M54.42 Lumbago with sciatica, left side; G89.29 Other chronic pain
CPT/HCPCS: 72110

== ENCOUNTER 2025-02-05 09:54 | Outpatient (CLI) | payer OTHER, SELFPAY ==
--- NOTE | ~2025-02-05 | MR_ITS ---
MRI of the lumbar spine Clinical History: Pain Technique: Axial T2-weighted images, and sagittal T1-weighted, T2-weighted, and T2 fat-sat images wer e acquired. Findings: There is no fracture. There is minimal grade 1 retrolisthesis of L2 over L3. No suspicious bone marrow signal abnormality seen. At L1-L2, there is no disc bulge or herniation. There is moderate facet arthropathy. No central canal stenosis or neural foraminal narrowing. At L2-L3, there is moderate degenerative distended. There is mild disc bulge and moderate facet arthr opathy. No central canal stenosis or neural foraminal narrowing. At L3-L4, there is mild degenerative disc narrowing. There is diffuse disc bulge and mild to moderate facet arthropathy. No central canal stenosis or neural foraminal narrowing. At L4-L5, there is minimal disc bulge and severe facet arthropathy. No central canal stenosis or neur al foraminal narrowing. At L5-S1, there is mild degenerative distended. There is central disc protrusion with mild facet arth ropathy. No central canal stenosis. There is probable mild bilateral neural foraminal narrowing. Paravertebral soft tissues are unremarkable. Impression: Mild degenerative spondylosis overall, as above. Reviewed, dictated and finalized at location . Impression: Mild degenerative spondylosis overall, as above.
== END 2025-02-05 09:55 | disposition home or self-care (01) ==
PROVIDERS: PCP Family Medicine; Visit Provider Family Medicine
DX: M47.813 Spondylosis without myelopathy or radiculopathy, cervicothoracic region (principal); M47.817 Spondylosis without myelopathy or radiculopathy, lumbosacral region; M54.42 Lumbago with sciatica, left side; G89.29 Other chronic pain
CPT/HCPCS: 72148